=== PATIENT | male | born 1990 | race American Indian/Alaskan Native ===

== ENCOUNTER 2021-06-01 14:27 | Emergency (ER) | payer OTHER ==
[2021-06-01] MEDS ORDERED: IBUPROFEN 800 MG TAB PO STA (17:04)
[2021-06-01] MEDS ORDERED: oxyCODONE /ACETAMINOPHEN 5-325MG TAB PO ONE (17:04)
[2021-06-01] MEDS ORDERED: TETANUS,DIPH,PERTUSS(ACELL) VACCINE 0.5 ML SYRINGE IM ONE (17:04)
[2021-06-01] MEDS ORDERED: NEOMY 3.5 MG/BACIT 400 UNITS/POLY B 5000 UNITS/GM OINT PACKET TP STA (17:05)
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
[2021-06-01 20:24] VITALS: BP 130/80
== END 2021-06-01 20:17 | disposition home or self-care (01) ==
LOC: ED 14:27
DX: S72.91XA Unspecified fracture of right femur, initial encounter for closed fracture (principal); Z79.899 Other long term (current) drug therapy; V49.88XA Car occupant (driver) (passenger) injured in other specified transport accidents, initial encounter; Y92.410 Unspecified street and highway as the place of occurrence of the external cause; Y93.89 Activity, other specified; Y99.9 Unspecified external cause status
CPT/HCPCS: 73562; 90471; 90715; 99283; A6250